=== PATIENT | female | born 1970 | race Caucasian/White ===

== ENCOUNTER 2022-01-14 20:32 | Emergency (ER) | payer SELFPAY ==
[~2022-01-14] VITALS: Ht 157.5 cm; Wt 59.0 kg
[2022-01-14 20:32] VITALS: BP 117/64
--- NOTE | 2022-01-14 20:40 | NUR ---
PT BIBA BLS TO BED 05
[2022-01-14] MEDS ORDERED: NACL 0.9% 1,000 ML IV ONE (21:05)
[2022-01-14] MEDS ORDERED: ONDANSETRON 4 MG/2 ML VIAL IVP ONE (21:05)
[2022-01-14] MEDS ORDERED: ONDANSETRON 4 MG/2 ML VIAL ONE (22:07)
--- NOTE | 2022-01-14 23:36 | NUR ---
PT WALKED TO BATHROOM STEADY GAIT .
--- NOTE | 2022-01-14 23:36 | NUR ---
52YR OLD FEMALE BIB EMS C/O CP S/P ETOH. PT HAD BEEN DRINKING STARTED FEELING ANXIOUS AND HAVING CP DENIES SOB. CURRENTLY NO CP 0/10 PAIN. ON HEAD OF PHYSICS. HOB ELEVATED. 20G IV CATH L AC. PT IS FRENCH SPEAKING ONLY. SIDE RAILS UP X2 BED IN LOWEST POSITION
[2022-01-15] MEDS ORDERED: KETOROLAC 30 MG/ML VIAL IVP ONE (00:45)
--- NOTE | 2022-01-15 01:03 | NUR ---
PT IS RESTING . PT STATES SHE HAS A REYES. 08/19. HOB ELEVATED. 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 DENIES CP OR SOB
[2022-01-15 03:29] VITALS: BP 114/53
--- NOTE | 2022-01-15 03:29 | NUR ---
Patient discharged with v/s stable. Written and verbal after care instructions given and explained. Patient verbalized understanding. Ambulatory with steady gait. All questions addressed prior to discharge. Advised to follow up with PMD.
--- NOTE | 2022-01-19 08:45 | NUR ---
LATE ENTRY- IV NORMAL SALINE DISCONTINUED AT 0329.
== END 2022-01-15 03:29 | disposition home or self-care (01) ==
LOC: MED 20:32
DX: F10.129 Alcohol abuse with intoxication, unspecified (principal); F41.9 Anxiety disorder, unspecified
CPT/HCPCS: 36415; 96374; 99283; G0482; J1885; J2405; J7030